=== PATIENT | male | born 1945 | race Two or more races ===

== ENCOUNTER 2018-04-24 07:24 | Emergency (ER) | payer OTHER, SELFPAY ==
[~2018-04-24] VITALS: Ht 165.1 cm; Wt 77.2 kg
[2018-04-24] MEDS ORDERED: ACETAMINOPHEN 325 MG TABLET ONE (07:59)
[2018-04-24] MEDS ORDERED: ACETAMINOPHEN 325 MG TABLET PO ONE (08:00)
[2018-04-24 09:37] VITALS: BP 140/78
== END 2018-04-24 09:39 | disposition home or self-care (01) ==
LOC: ED 09:00
DX: S29.012A Strain of muscle and tendon of back wall of thorax, initial encounter (principal); E78.5 Hyperlipidemia, unspecified; I10 Essential (primary) hypertension; E11.9 Type 2 diabetes mellitus without complications; W22.8XXA Striking against or struck by other objects, initial encounter; Y93.89 Activity, other specified; Y99.8 Other external cause status; Y92.89 Other specified places as the place of occurrence of the external cause
CPT/HCPCS: 99284

== ENCOUNTER 2018-08-29 15:47 | Emergency (ER) | payer MEDICARE, OTHER ==
[~2018-08-29] VITALS: Ht 160 cm; Wt 76.0 kg
[2018-08-29 15:58] VITALS: BP 135/72
[2018-08-29 16:33] LABS: BASOPHILS # (AUTO) 0.02 x10^3/uL (0-0.1); BASOPHILS % (AUTO) 0 % (0-1); EOSINOPHILS # (AUTO) 0.21 x10^3/uL (0-0.4); EOSINOPHILS % (AUTO) 3 % (1-7); LYMPHOCYTES # (AUTO) 1.71 x10^3/uL (1-3.4); LYMPHOCYTES % (AUTO) 26 % (22-44); MD NO; MEAN CORPUSCULAR HEMOGLOBIN 30.1 pg (27.5-34.5); MEAN CORPUSCULAR HGB CONC 32.9 g/dL (33.2-36.2); MEAN CORPUSCULAR VOLUME 91.4 fL (81-97); MEAN PLATELET VOLUME 8.2 fL (7.4-10.4); MONOCYTES # (AUTO) 0.74 x10^3/uL (0.2-0.8); MONOCYTES % (AUTO) 11 % (2-9); NEUTROPHILS % (AUTO) 59 % (42-75); PLATELET COUNT 173 x10^3/uL (130-400); RED BLOOD COUNT 5.44 x10^6/uL (4.38-5.82); RED CELL DISTRIBUTION WIDTH 14.2 % (9.4-14.8)
[2018-08-29 16:43] LABS: ALBUMIN 3.4 g/dL (3.4-5.0); ANION GAP 7 mmol/L (5-15); CALCIUM 8.4 mg/dL (8.5-10.1); CHLORIDE 105 mmol/L (98-107)
[2018-08-29 16:47] LABS: ALANINE AMINOTRANSFERASE 57 U/L (12-78); ALKALINE PHOSPHATASE 124 U/L (45-117); BILIRUBIN,TOTAL 0.8 mg/dL (0.2-1.0); TOTAL PROTEIN 7.4 g/dL (6.4-8.2)
== END 2018-08-29 17:11 | disposition home or self-care (01) ==
LOC: ED 16:28
DX: J00 Acute nasopharyngitis [common cold] (principal); B34.9 Viral infection, unspecified; E11.9 Type 2 diabetes mellitus without complications; I10 Essential (primary) hypertension; E78.5 Hyperlipidemia, unspecified
CPT/HCPCS: 36415; 71046; 80053; 85025; 99284

== ENCOUNTER 2018-09-22 07:53 | Emergency (ER) | payer MEDICARE, OTHER ==
[~2018-09-22] VITALS: Ht 165.1 cm; Wt 77.6 kg
[2018-09-22 08:10] VITALS: BP 143/77
--- NOTE | 2018-09-22 08:18 | NUR ---
pt in room. asked to don gown. oriented to room for safety.
[2018-09-22] MEDS ORDERED: IBUPROFEN 200 MG TABLET PO ONE (08:30)
[2018-09-22] MEDS ORDERED: IBUPROFEN 200 MG TABLET ONE (08:45)
--- NOTE | 2018-09-22 09:39 | NUR ---
EMT AT BS FOR SPLINTING.
--- NOTE | 2018-09-22 10:16 | NUR ---
YULY'S COMP PAPERWORK GIVEN TO PT. INSTRUCTIONS GIVEN.
== END 2018-09-22 10:18 | disposition home or self-care (01) ==
LOC: ED 08:55
DX: S62.355A Nondisplaced fracture of shaft of fourth metacarpal bone, left hand, initial encounter for closed fracture (principal); W20.8XXA Other cause of strike by thrown, projected or falling object, initial encounter; Y93.89 Activity, other specified; Y92.69 Other specified industrial and construction area as the place of occurrence of the external cause; Y99.0 Civilian activity done for income or pay
CPT/HCPCS: 29125; 99283

== ENCOUNTER 2018-12-21 07:50 | Emergency (ER) | payer MEDICARE, OTHER ==
[~2018-12-21] VITALS: Ht 157.5 cm; Wt 76.0 kg
--- NOTE | 2018-12-21 08:12 | NUR ---
pt to room
--- NOTE | 2018-12-21 09:02 | NUR ---
pt upright on gurney awake & calm, Yemeni-speaking but responds approp to staff, NAD, comfort measures provided, call light within reach, [place] at BS.
[2018-12-21 09:58] VITALS: BP 154/81
--- NOTE | 2018-12-21 09:59 | NUR ---
pt remains upright on gurney awake & calm, Greek-speaking but responds approp to staff, NAD, comfort measures provided, call light within reach.
--- NOTE | 2018-12-21 11:10 | NUR ---
Patient given discharge instructions and they have confirmed that they understand the instructions via [employer]. Patient ambulatory with steady gait.
== END 2018-12-21 11:10 | disposition home or self-care (01) ==
LOC: ED 08:38
DX: M25.562 Pain in left knee (principal); I10 Essential (primary) hypertension; E11.9 Type 2 diabetes mellitus without complications
CPT/HCPCS: 99284

== ENCOUNTER 2019-04-01 14:31 | Outpatient (CLI) | payer MEDICARE | END 2019-04-01 23:59 | disposition home or self-care (01) | LOC: RAD 14:31 | PROVIDERS: ATTEND Family Medicine | DX: R05 Cough (principal); M47.814 Spondylosis without myelopathy or radiculopathy, thoracic region | CPT/HCPCS: 71046 ==

== ENCOUNTER 2020-01-09 16:03 | Emergency (ER) | payer MEDICARE ==
[~2020-01-09] VITALS: Ht 167.6 cm; Wt 82.0 kg
[2020-01-09] MEDS ORDERED: ACETAMINOPHEN 500 MG TABLET PO ONE (16:30)
[2020-01-09] MEDS ORDERED: ACETAMINOPHEN 500 MG TABLET ONE (16:52)
[2020-01-09 19:10] VITALS: BP 148/87
[2020-01-12] MEDS ORDERED: DM MEDICATION (08:13)
[2020-01-12] MEDS ORDERED: CHOLESTEROL MED (08:13)
[2020-01-12] MEDS ORDERED: HTN MED (08:13)
[2020-01-12] MEDS ORDERED: AMLO5TAB10 PO (11:35)
[2020-01-12] MEDS ORDERED: LISI-420 PO (11:35)
[2020-01-12] MEDS ORDERED: HYDR-3237 PO (11:35)
[2020-01-12] MEDS ORDERED: GLYB1TAB16 PO (11:35)
[2020-01-12] MEDS ORDERED: DIPH50CA17 PO (11:35)
[2020-01-12] MEDS ORDERED: FLUT100B PO (11:35)
[2020-01-12] MEDS ORDERED: PRAV40TA2 PO (11:35)
[2020-01-12] MEDS ORDERED: LOSA100T14 PO (11:35)
== END 2020-01-09 19:14 | disposition home or self-care (01) ==
LOC: ED 18:00
DX: S22.31XA Fracture of one rib, right side, initial encounter for closed fracture (principal); S20.211A Contusion of right front wall of thorax, initial encounter; E11.9 Type 2 diabetes mellitus without complications; W18.30XA Fall on same level, unspecified, initial encounter; Y93.89 Activity, other specified; Y92.009 Unspecified place in unspecified non-institutional (private) residence as the place of occurrence of the external cause; Y99.8 Other external cause status
CPT/HCPCS: 99283

== ENCOUNTER 2020-01-13 08:35 | Observation (INO) | payer MEDICARE ==
[~2020-01-13] VITALS: Ht 162.6 cm; Wt 83.8 kg
[~2020-01-13 08:35] MED LIST: AMLO5TAB10 PO; CHOLESTEROL MED; DIPH50CA17 PO; DM MEDICATION; FLUT100B PO; GLYB1TAB16 PO; HTN MED; HYDR-3237 PO; LISI-420 PO; LOSA100T14 PO; PRAV40TA2 PO
[2020-01-13] MEDS ORDERED: ONDANSETRON 2MG/ML, 2ML ONE (09:20)
[2020-01-13] MEDS ORDERED: MORPHINE SULFATE 4 MG/ML, 1ML ONE ×2 (09:20→12:25)
[2020-01-13] MEDS: MORPHINE SULFATE 4 MG/ML, 1ML IVPush PRN ×2 (09:29→12:29)
[2020-01-13] MEDS ORDERED: SODIUM CHLORIDE FLUSH 10ML SYR IVF ONE (09:30)
[2020-01-13] MEDS ORDERED: ONDANSETRON 2MG/ML, 2ML IVPush ONE (09:30)
--- NOTE | 2020-01-13 09:32 | NUR ---
pt medicated per emar. pt tolerated well.
--- NOTE | 2020-01-13 10:01 | NUR ---
pt resting on gurney, resps even, unlabored, deeper than on arrival. pt denies pain s/p morphine. POC is admit d/t hypoxia, discussed with pt. pt agreeable.
--- NOTE | 2020-01-13 10:25 | NUR ---
pt's preferred pharmacy is [facility], med rec completed by calling pharmacy.
--- NOTE | 2020-01-13 11:13 | NUR ---
pt resting on gurney, resps even and unlabored. pt denies pain. awaiting medical bed assignment and transport at this time.
[2020-01-13] MEDS ORDERED: METHYLNALTREXONE 12 MG/0.6 ML SYR SQ ONE ×2 (12:25→12:30)
[2020-01-13] MEDS ORDERED: LIDODERM 5% PATCH TD PRN (12:30)
[2020-01-13] MEDS ORDERED: ACETAMINOPHEN 325 MG TABLET PO PRN (12:30)
[2020-01-13] MEDS ORDERED: BISACODYL 10 MG SUPP PR PRN (12:30)
[2020-01-13] MEDS ORDERED: TRAZODONE 50MG TABLET PO PRN (12:30)
[2020-01-13] MEDS ORDERED: LABETALOL 5MG/ML, 20ML IVPush PRN (12:30)
[2020-01-13] MEDS ORDERED: ONDANSETRON 2MG/ML, 2ML IVPush PRN (12:30)
[2020-01-13] MEDS ORDERED: hydrALAzine 20 MG/ML, 1ML IVPush PRN (12:30)
--- NOTE | 2020-01-13 12:37 | NUR ---
pt reports 5/10 right rib pain (worse with inspiration) and generalized abd pain. pt states lbm was 4 days ago, has been taking prescription norco since yesterday. KRISTIAN Soriano notified, remeron ordered and admin per emar. Pt requesting meal tray, okd by KRISTIAN. pt denies sob. 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 pt a&o, resps even, shallow, rate 20. pt able to speak in full sentences without difficulty. morphine admin per emar for rib/abd pain. medical attendant utilized for initial assessment and reassessment. pt to be transported to medical floor once report has been given.
[2020-01-13 12:57] VITALS: BP 129/68
[2020-01-13] MEDS ORDERED: BUDESONIDE 0.5 MG/2 ML INHA HHN SCH (13:00)
[2020-01-13] MEDS: BUDESONIDE 0.5 MG/2 ML INHA HHN SCH ×2 (13:00→19:03)
--- NOTE | 2020-01-13 13:08 | NUR ---
Report called to receiving CARLEE Vasquez. pt awaiting transport to medical floor.
--- NOTE | 2020-01-13 13:09 | NUR ---
Incentive spirometer provided at bedside.
[2020-01-13 14:15] LABS: HCT (SEDRATE) 45.3 % (39.2-51.8)
[2020-01-13 14:34] LABS: FREE T4 (FREE THYROXINE) 1.03 ng/dL (0.76-1.46)
[2020-01-13] MEDS: OXYcodone IR 5MG TABLET PO PRN ×2 (14:37→20:01)
[2020-01-13] MEDS: ENOXAPARIN 40 MG/0.4 ML SQ SCH (14:37)
[2020-01-13] MEDS: NS + 20MEQ KCL 1,000 ML IV SCH ×2 (14:37→22:50)
[2020-01-13] MEDS: LOSARTAN 100 MG TAB PO SCH (14:37)
[2020-01-13] MEDS: LISINOPRIL 20 MG TABLET PO SCH (14:38)
[2020-01-13] MEDS: SENNA/DOCUSATE TABLET PO SCH (14:38)
[2020-01-13] MEDS: AMLODIPINE 5 MG TABLET PO SCH (14:38)
[2020-01-13 14:44] VITALS: BP 127/82
[2020-01-13 14:45] VITALS: BP 127/82
[2020-01-13] MEDS: INSULIN LISPRO 100 UNITS/ML, PEN SQ-INSULIN SCH ×2 (16:00→20:01)
[2020-01-13] MEDS: metFORMIN 500 MG TABLET PO SCH (16:35)
[2020-01-13] MEDS: morphine SULFATE 10 MG/ML, 1ML IVPush PRN ×2 (16:35→22:05)
[2020-01-13] MEDS: FAMOTIDINE 20 MG TABLET PO SCH (20:01)
[2020-01-13] MEDS: PRAVASTATIN 40 MG TABLET PO SCH (20:01)
[2020-01-13 20:05] VITALS: BP 141/79
[2020-01-14 01:10] VITALS: BP 132/72
[2020-01-14 05:38] LABS: BASOPHILS # (AUTO) 0.01 x10^3/uL (0-0.1); BASOPHILS % (AUTO) 0 % (0-1); EOSINOPHILS # (AUTO) 0.08 x10^3/uL (0-0.4); EOSINOPHILS % (AUTO) 1 % (1-7); LYMPHOCYTES # (AUTO) 1.46 x10^3/uL (1-3.4); LYMPHOCYTES % (AUTO) 21 % (22-44); MD NO; MEAN CORPUSCULAR HEMOGLOBIN 31.3 pg (27.5-34.5); MEAN CORPUSCULAR HGB CONC 32.7 g/dL (33.2-36.2); MEAN CORPUSCULAR VOLUME 95.6 fL (81-97); MONOCYTES # (AUTO) 0.78 x10^3/uL (0.2-0.8); MONOCYTES % (AUTO) 11 % (2-9); NEUTROPHILS # (AUTO) 4.58 x10^3/uL (1.8-6.8); NEUTROPHILS % (AUTO) 66 % (42-75); PLATELET COUNT 177 x10^3/uL (130-400); RED BLOOD COUNT 4.35 x10^6/uL (4.38-5.82); RED CELL DISTRIBUTION WIDTH 14.4 % (9.4-14.8)
[2020-01-14 05:44] LABS: CHLORIDE 104 mmol/L (98-107)
[2020-01-14 05:57] LABS: ANION GAP 5 mmol/L (5-15); CALCIUM 8.3 mg/dL (8.5-10.1); CHOL/HDL RATIO 2.8; CHOLESTEROL, TOTAL 107 mg/dL (140-239); CREATININE 0.71 mg/dL (0.7-1.3); HDL CHOL % 36 % (26-37); HDL CHOLESTEROL (DIRECT) 38 mg/dL (40-60); LDL CHOLESTEROL,CALCULATED 55 mg/dL (54-169); LDL/HDL RATIO 1.4 (0.5-3.0); TRIGLYCERIDES 69 mg/dL (50-200); VLDL CHOLESTEROL 14 mg/dL (0-25)
[2020-01-14 06:56] VITALS: BP 125/74
[2020-01-14] MEDS: INSULIN LISPRO 100 UNITS/ML, PEN SQ-INSULIN SCH ×4 (06:59→21:00)
[2020-01-14] MEDS: FAMOTIDINE 20 MG TABLET PO SCH ×2 (09:00→21:06)
[2020-01-14] MEDS: LOSARTAN 100 MG TAB PO SCH (09:01)
[2020-01-14] MEDS: SENNA/DOCUSATE TABLET PO SCH (09:01)
[2020-01-14] MEDS: AMLODIPINE 5 MG TABLET PO SCH (09:01)
[2020-01-14] MEDS: metFORMIN 500 MG TABLET PO SCH ×2 (09:01→16:36)
[2020-01-14] MEDS: LISINOPRIL 20 MG TABLET PO SCH (09:01)
[2020-01-14] MEDS: ALBUTEROL SULFATE 2.5 MG/3 ML NPPB SCH (09:45)
[2020-01-14] MEDS: BUDESONIDE 0.5 MG/2 ML INHA HHN SCH ×2 (09:45→18:49)
[2020-01-14] MEDS: OXYcodone IR 5MG TABLET PO PRN ×2 (10:26→21:06)
[2020-01-14] MEDS: morphine SULFATE 10 MG/ML, 1ML IVPush PRN (11:40)
[2020-01-14 13:15] VITALS: BP 125/75
[2020-01-14] MEDS: ENOXAPARIN 40 MG/0.4 ML SQ SCH (14:00)
[2020-01-14] MEDS: NS + 20MEQ KCL 1,000 ML IV SCH (14:24)
[2020-01-14] MEDS: POLYETHYLENE GLYCOL 17 GM PACKET PO PRN (16:37)
[2020-01-14 20:32] VITALS: BP 137/87
[2020-01-14] MEDS: PRAVASTATIN 40 MG TABLET PO SCH (21:06)
[2020-01-15] MEDS: NS + 20MEQ KCL 1,000 ML IV SCH ×2 (00:09→10:47)
[2020-01-15 00:11] VITALS: BP 154/90
[2020-01-15 04:56] LABS: BASOPHILS # (AUTO) 0.03 x10^3/uL (0-0.1); BASOPHILS % (AUTO) 0 % (0-1); EOSINOPHILS # (AUTO) 0.31 x10^3/uL (0-0.4); EOSINOPHILS % (AUTO) 4 % (1-7); LYMPHOCYTES # (AUTO) 1.63 x10^3/uL (1-3.4); LYMPHOCYTES % (AUTO) 22 % (22-44); MD NO; MEAN CORPUSCULAR HEMOGLOBIN 31.4 pg (27.5-34.5); MEAN CORPUSCULAR HGB CONC 32.8 g/dL (33.2-36.2); MEAN CORPUSCULAR VOLUME 95.6 fL (81-97); MONOCYTES # (AUTO) 0.81 x10^3/uL (0.2-0.8); MONOCYTES % (AUTO) 11 % (2-9); NEUTROPHILS # (AUTO) 4.74 x10^3/uL (1.8-6.8); NEUTROPHILS % (AUTO) 63 % (42-75); PLATELET COUNT 197 x10^3/uL (130-400); RED BLOOD COUNT 4.56 x10^6/uL (4.38-5.82); RED CELL DISTRIBUTION WIDTH 14.4 % (9.4-14.8)
[2020-01-15 05:02] LABS: ANION GAP 5 mmol/L (5-15); CALCIUM 8.8 mg/dL (8.5-10.1); CHLORIDE 105 mmol/L (98-107); CREATININE 0.65 mg/dL (0.7-1.3)
[2020-01-15] MEDS: INSULIN LISPRO 100 UNITS/ML, PEN SQ-INSULIN SCH ×3 (07:00→16:00)
[2020-01-15 08:41] VITALS: BP 149/79
[2020-01-15] MEDS: LOSARTAN 100 MG TAB PO SCH (08:52)
[2020-01-15] MEDS: SENNA/DOCUSATE TABLET PO SCH (08:52)
[2020-01-15] MEDS: FAMOTIDINE 20 MG TABLET PO SCH (08:53)
[2020-01-15] MEDS: LISINOPRIL 20 MG TABLET PO SCH (08:53)
[2020-01-15] MEDS: AMLODIPINE 5 MG TABLET PO SCH (08:53)
[2020-01-15] MEDS: metFORMIN 500 MG TABLET PO SCH ×2 (08:53→16:55)
[2020-01-15] MEDS: POLYETHYLENE GLYCOL 17 GM PACKET PO PRN (08:54)
[2020-01-15] MEDS: BUDESONIDE 0.5 MG/2 ML INHA HHN SCH (10:10)
[2020-01-15] MEDS: ALBUTEROL SULFATE 2.5 MG/3 ML NPPB SCH (10:10)
[2020-01-15 14:11] VITALS: BP 138/77
[2020-01-15] MEDS: ENOXAPARIN 40 MG/0.4 ML SQ SCH (14:47)
[2020-01-15] MEDS ORDERED: SENN-193 PO (15:55)
[2020-01-15] MEDS: OXYcodone IR 5MG TABLET PO PRN (16:56)
== END 2020-01-15 20:10 | disposition home or self-care (01) ==
LOC: ED 09:15 → EDIP 10:35 → INTOOBSV 10:35 → 3N 12:26
PROVIDERS: ADMIT Hospitalist; ATTEND Hospitalist
DX: S22.41XA Multiple fractures of ribs, right side, initial encounter for closed fracture (principal); E78.5 Hyperlipidemia, unspecified; K21.9 Gastro-esophageal reflux disease without esophagitis; E11.9 Type 2 diabetes mellitus without complications; I10 Essential (primary) hypertension; W18.39XA Other fall on same level, initial encounter; Y92.89 Other specified places as the place of occurrence of the external cause; Y93.89 Activity, other specified; Z79.899 Other long term (current) drug therapy
CPT/HCPCS: 36415; 71045; 80048; 80061; 82962; 83036; 84439; 84443; 85025; 85651; 94640; 96372; 96374; 96375; 96376; 97163; 97165; 99285; G0378; J1650; J1815; J2270; J2405; J3480; J7613; J7626